=== PATIENT | female | born 2000 | race Hispanic/Latino ===

== ENCOUNTER 2022-04-16 05:40 | Day surgery (SDC) | payer BC ==
[2022-04-13 12:02] VITALS: BMI 27.4
[2022-04-16] MEDS ORDERED: Fentanyl 250 MCG/5 ML VIAL ONE (06:23)
[2022-04-16] MEDS ORDERED: Neomycin-Polymyxin 1 ML AMP ONE (06:41)
[2022-04-16] MEDS ORDERED: Vancomycin 1 GM VIAL ONE (06:41)
[2022-04-16] MEDS ORDERED: Bupivacaine/Epinephrine 0.25% 30 ML VIAL ONE (06:41)
[2022-04-16] MEDS ORDERED: Gentamicin 80 MG/2 ML VIAL ONE (06:41)
[2022-04-16] MEDS ORDERED: Midazolam HCl 2 mg/2 ml Vial ONE (06:50)
[2022-04-16] MEDS ORDERED: Heparin 5,000 UNITS/ML VIAL ONE (07:00)
[2022-04-16] MEDS ORDERED: CEFAZOLIN 2 GM VIAL ONE (07:00)
[2022-04-16] MEDS ORDERED: Sodium Chloride 0.9% 100 ML ONE (07:00)
[2022-04-16] MEDS ORDERED: Dexamethasone 20 MG/5 ML VIAL ONE (07:12)
[2022-04-16] MEDS ORDERED: ePHEDrine 50 MG/ML VIAL ONE (07:12)
[2022-04-16] MEDS ORDERED: PHENYLEPHRINE-NS 100 MCG/ML 10 ML SYRINGE ONE (07:12)
[2022-04-16] MEDS ORDERED: PROPOFOL 200 MG/20 ML VIAL ONE (07:12)
[2022-04-16] MEDS ORDERED: Lidocaine 1% PF 5 ML VIAL ONE (07:12)
[2022-04-16] MEDS ORDERED: Ondansetron PF 4 MG/2 ML Vial ONE (07:12)
[2022-04-16 07:45] LABS: BHCG - Serum Negative (NEGATIVE); Pregs Control Background? CLEAR/WHITE (CLR/WHITE); Pregs Control Bar Appear? YES (CONTROL BAR)
[2022-04-16] MEDS ORDERED: HYDROcodone/Acetaminophen 5/325 mg Tablet ONE (11:13)
== END 2022-04-16 12:17 | disposition home or self-care (01) ==
LOC: SDC 05:40
PROVIDERS: ATTEND Plastic Surgery
PROC: 0HBV0ZZ Excision of Bilateral Breast, Open Approach (ICD-10-PCS; principal; 2022-04-16)
DX: N62 Hypertrophy of breast (principal)
CPT/HCPCS: 84703; 88305; J1100; J1580; J1644; J2250; J2405; J2704; J3010; J3370; J3490